=== PATIENT | male | born 1935 | race African-American/Black ===

== ENCOUNTER 2017-06-22 07:48 | Outpatient (CLI) | payer MEDICARE, OTHER ==
--- NOTE | 2017-06-22 09:50 | CT ---
CONTRAST ENHANCED CT IMAGES OF CHEST: HISTORY: An 81-year-old male who is on chemotherapy and radiation. History of lung cancer. Contrast-enhanced CT images of the chest are performed. Coronary artery calcifications are seen. There is an area of atelectasis and scarring in the left lower lobe. This is stable and unchanged s domonique the previous exam. Sternotomy wires are seen. There is a right jugular MediPort catheter in p lace. Calcification of the aortic arch is seen. No evidence of mediastinal, hilar, or axillary lymphadeno carroll is seen. IMPRESSION: Stable left lower lobe changes. There are areas of scarring and stable airspace opacities in the le ft lower lobe. This has not significantly changed since the previous exam from 01/16/17. POS: SHUKRI
[2017-06-22] MEDS ORDERED: Iopamidol 370 76% 100 ML VIAL ONE (14:26)
== END 2017-06-22 07:49 | disposition home or self-care (01) ==
LOC: CT 07:48
PROVIDERS: ATTEND Internal Medicine Medical Oncology
DX: C34.32 Malignant neoplasm of lower lobe, left bronchus or lung (principal); R91.8 Other nonspecific abnormal finding of lung field
CPT/HCPCS: 71260